=== PATIENT | female | born 1985 | race Caucasian/White ===

== ENCOUNTER 2022-01-23 03:46 | Inpatient (IN) | payer OTHER ==
[2022-01-23] MEDS ORDERED: Ampicillin 2 GM AdvVial IV ONE (05:01)
[2022-01-23] MEDS ORDERED: Lactated Ringers 1,000 ML ONE (05:02)
[2022-01-23] MEDS ORDERED: Betamethasone Acetate/Betamethasone Sod Phosphate 30 MG/5 ML MDV ONE (05:02)
[2022-01-23] MEDS ORDERED: Sodium Chloride 0.9% 100 ML ONE (05:04)
[2022-01-23 05:11] VITALS: BP 115/71; PULSE 86
[2022-01-23] MEDS ORDERED: Lactated Ringers 1,000 ML IV SCH (05:15)
[2022-01-23] MEDS ORDERED: Ampicillin 2 GM in Sodium Chloride 0.9% 100 ML IV ONE (05:34)
[2022-01-23] MEDS ORDERED: Betamethasone Acetate/Betamethasone Sod Phosphate 30 MG/5 ML MDV IM ONE (05:34)
== END 2022-01-23 06:07 | DRG 833 ==
LOC: JD.OB 03:46
PROVIDERS: ADMIT Obstetrics & Gynecology; ATTEND Obstetrics & Gynecology
DX: O42.913 Preterm premature rupture of membranes, unspecified as to length of time between rupture and onset of labor, third trimester (principal); E03.9 Hypothyroidism, unspecified; F17.210 Nicotine dependence, cigarettes, uncomplicated; O99.213 Obesity complicating pregnancy, third trimester; O99.333 Smoking (tobacco) complicating pregnancy, third trimester; O99.283 Endocrine, nutritional and metabolic diseases complicating pregnancy, third trimester; Z98.84 Bariatric surgery status; Z3A.34 34 weeks gestation of pregnancy; Z90.49 Acquired absence of other specified parts of digestive tract; Z98.891 History of uterine scar from previous surgery
CPT/HCPCS: 59025; 84112; 87653; 96360; 96368; 96372; J0290; J0702; J7120